=== PATIENT | female | born 1985 | race Two or more races ===

== ENCOUNTER → 2020-04-08 | Outpatient (CLI) | payer SELFPAY | END | disposition home or self-care (01) | LOC: OB 13:46 | PROVIDERS: ATTEND Obstetrics & Gynecology | DX: Z34.92 Encounter for supervision of normal pregnancy, unspecified, second trimester (principal); Z3A.19 19 weeks gestation of pregnancy | CPT/HCPCS: 76805 ==

== ENCOUNTER → 2020-08-21 | Outpatient (CLI) | payer MEDICAID | END | disposition home or self-care (01) | LOC: OB 10:10 | PROVIDERS: ATTEND Obstetrics & Gynecology | DX: Z20.822 Contact with and (suspected) exposure to COVID-19 (principal) | CPT/HCPCS: C9803; U0003 ==